=== PATIENT | female | born 1935 | race Caucasian/White ===

== ENCOUNTER 2018-12-13 08:12 | Day surgery (SDC) ==
[2018-12-13] MEDS: TETRACAINE 0.5% UNIT-DOSE OP PRN ×2 (09:55→10:20)
[2018-12-13] MEDS: BETADINE OPTH PREP OP PRN ×2 (09:55→10:20)
[2018-12-13] MEDS: CYCLOGYL 2% OPTH OP PRN ×3 (09:56→10:06)
[2018-12-13] MEDS ORDERED: LIDOCAINE 1%/PHENYLEPHRINE 1.5% BSS (SURGERY) INTRAOCULA ONE (10:08)
[2018-12-13] MEDS ORDERED: LIDOCAINE 1% 20 ML MDV ID STA (10:08)
[2018-12-13] MEDS ORDERED: DEX-MOXI-KETOR OPTH INJ 1/0.5/0.4 MG/ML IO ONE (10:08)
[2018-12-13] MEDS ORDERED: ZOFRAN 4 MG/2 ML IVP ONE (10:08)
[2018-12-13] MEDS ORDERED: BSS WITH EPINEPHRINE OP ONE (10:08)
[2018-12-13] MEDS ORDERED: BRIMONIDINE TARTRATE 0.2% OPTH SOL OP PRN (10:08)
[2018-12-13 10:16] VITALS: TEMP 97.6
[2018-12-13] MEDS ORDERED: VERSED ONE (10:25)
[2018-12-13] MEDS ORDERED: ZOFRAN 4 MG/2 ML ONE (10:25)
[2018-12-13] MEDS ORDERED: SUBLIMAZE ONE (10:25)
[2018-12-13 14:21] VITALS: BP 106/50
== END 2018-12-13 11:35 | disposition home or self-care (01) ==
LOC: SURG 08:12
PROVIDERS: ATTEND Ophthalmology
DX: H25.813 Combined forms of age-related cataract, bilateral (principal)

== ENCOUNTER 2018-12-28 07:02 | Day surgery (SDC) ==
[2018-12-28] MEDS: BETADINE OPTH PREP OP PRN ×2 (07:20→08:06)
[2018-12-28] MEDS: TETRACAINE 0.5% UNIT-DOSE OP PRN ×2 (07:20→08:06)
[2018-12-28] MEDS: CYCLOGYL 2% OPTH OP PRN ×3 (07:21→07:31)
[2018-12-28] MEDS ORDERED: LIDOCAINE 1%/PHENYLEPHRINE 1.5% BSS (SURGERY) INTRAOCULA ONE (07:30)
[2018-12-28] MEDS ORDERED: BSS WITH EPINEPHRINE OP ONE (07:30)
[2018-12-28] MEDS ORDERED: ZOFRAN 4 MG/2 ML IVP ONE (07:30)
[2018-12-28] MEDS ORDERED: DEX-MOXI-KETOR OPTH INJ 1/0.5/0.4 MG/ML IO ONE (07:30)
[2018-12-28] MEDS ORDERED: BRIMONIDINE TARTRATE 0.2% OPTH SOL OP PRN (07:30)
[2018-12-28] MEDS ORDERED: LIDOCAINE 1% 20 ML MDV ID STA (07:30)
[2018-12-28 07:36] VITALS: TEMP 97.8
[2018-12-28] MEDS ORDERED: SUBLIMAZE ONE (08:15)
[2018-12-28] MEDS ORDERED: VERSED ONE (08:15)
[2018-12-28] MEDS ORDERED: ZOFRAN 4 MG/2 ML ONE (08:15)
[2018-12-29 10:25] VITALS: BP 132/66
== END 2018-12-28 09:05 | disposition home or self-care (01) ==
LOC: SURG 07:02
PROVIDERS: ATTEND Ophthalmology
DX: H25.811 Combined forms of age-related cataract, right eye (principal)